=== PATIENT | female | born 1985 | race African-American/Black ===

== ENCOUNTER 2022-01-28 17:30 | Emergency (ER) | payer OTHER ==
--- OUTSIDE RECORDS SUMMARY | 2022-01-28 17:32 | XMS REPORT | Continuity of Care Document ---
:1985 Author Organization [facility] Address [address] [place] [address] Dr. Cortes [address] [place] [id number] Care Team Providers Name Role Phone NENA Attending Clinician Unavailable Tiburcio Gallardo Attending Clinician [phone] NENA Admitting Clinician Unavailable Payers Payer Name Policy Type Policy Number Effective Date Expiration Date S anshu [facility] [id number] 2021 [facility] - 00:00:00 [place] (MEDICAID H[place] [id number] [facility] (MEDICAID) Problems This patient has no known problems. Allergies, Adverse Reactions, Alerts This patient has no known allergies or adverse reactions. Medications This patient has no known medications. Procedures This patient has no known procedures. Encounters Start End Encounter Admission Attending Care Care Encounter Source Date/Time Date/Time Type Type Clinicians Facility Department ID 2021-12-22 2021-12-22 Outpatient EREDMUNDO_R [facility] [address] [place] 05:19:00 05:19:00 0719 [facility] 2021-12-22 2021-12-22 Outpatient Yosi [facility] [id number] 00:00:00 00:00:00 Tiburcio [id number] [place] [id number] 2021-02-02 2021-02-02 Outpatient ERKELSI [facility] [address] [place] 12:15:00 12:15:00 0830 [facility] 2021-02-02 2021-02-02 Outpatient ERKELSI [facility] [address] [place] 12:15:00 12:15:00 0714 [facility] 2021-02-02 2021-02-02 Outpatient Yosi [facility] [id number] 00:00:00 00:00:00 Tiburcio [id number] [place] [id number] 2020-12-22 2020-12-22 Outpatient YOSI_Pro [facility] [address] [place] 04:26:00 04:26:00 0719 [facility] 2020-12-22 2020-12-22 Outpatient Gallardo, [facility] [id number] 00:00:00 00:00:00 Tiburcio [id number] Harrison [id number] 2020-12-16 Outpatient NENA [facility] [address] [place] 01:11:00 01:11:00 0713 [facility] Results This patient has no known results.
[2022-01-28] MEDS ORDERED: LIDOCAINE 1% MPF 30 ML VIAL ONE ×2 (17:59→18:01)
--- NOTE | 2022-01-28 18:09 | EDPHYS ---
Physician Documentation [facility] Name: Guero Brantley Age: 36 yrs Sex: Female : 1985 Arrival Date: 01/28/2022 Time: 17:32 Bed 19 Private MD: ED Physician Bryce Vences HPI: 01/28 18:37 This 36 yrs old Black Female presents to ER via Unassigned with complaints of Finger ms3 Injury. 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 The rash is located on the dorsal aspect of distal phalanx of right index finger. The rash can be described as abscess. Onset: The symptoms/episode began/occurred 1 week(s) ago. Associated signs and symptoms: Pertinent positives: Pain. Severity of symptoms: At their worst the symptoms were moderate in the emergency department the symptoms are unchanged. Treatment given at home: NSAIDS. 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 - Social history:: Smoking status: Patient denies any tobacco usage or history of. ROS: 18:37 Constitutional: Negative for fever, and chills. Neck: Negative for injury, pain, and ms3 swelling, Cardiovascular: Negative for chest pain, and palpitations. Respiratory: Negative for shortness of breath, cough, wheezing, and pleuritic chest pain, Abdomen/GI: Negative for abdominal pain, nausea, vomiting, diarrhea, and constipation, MS/Extremity: Negative for injury and deformity. 18:37 Skin: Positive for rash. 18:37 All other systems are negative. Exam: 18:37 Constitutional: This is a well developed, well nourished patient who is awake, alert, ms3 and in no acute distress. Head/Face: Normocephalic, atraumatic. Neck: Trachea midline, no cervical lymphadenopathy. Supple, full range of motion without nuchal rigidity, or vertebral point tenderness. No Meningismus. Chest/axilla: Normal chest wall appearance and motion. Nontender with no deformity. Cardiovascular: Regular rate and rhythm with a normal S1 and S2. No gallops, murmurs, or rubs. Normal PMI, no JVD. No pulse deficits. Respiratory: Lungs have equal breath sounds bilaterally, clear to auscultation and percussion. No rales, rhonchi or wheezes noted. No increased work of breathing, no retractions or nasal flaring. Abdomen/GI: Soft, non-tender, with normal bowel sounds. No distension or tympany. No guarding or rebound. No evidence of tenderness throughout. Psych: Awake, alert, with orientation to person, place and time. Behavior, mood, and affect are within normal limits. 18:37 Skin: Appearance: abscess, that is moderate sized, of the dorsal aspect of distal phalanx of right index finger, with fluctuance. Vital Signs: 17:30 BP 128 / 78; Pulse 82; Resp 16; Temp 98; Pulse Ox 100% ; Weight 68.04 kg; Height 5 ft. kb3 6 in. (167.64 cm); Pain 7/10; 17:30 Body Mass Index 24.21 (68.04 kg, 167.64 cm) kb3 Procedures: 18:33 I \T\ D: Incision and drainage was performed for an abscess of the right Index finger ms3 Prepped with alcohol, Anesthetized with 5 ml's 1% Lidocaine. Digital block. Incised with #11 blade. Drained moderate amount purulent fluid. Dressing: sterile 4x4 gauze, petroleum dressing, the patient tolerated the procedure poorly, Paronychia not packed as patient stated she would like the procedure stopped. Explained risks of not packing the paronychia with patient. She accepts risks of recollection of abscess.. MDM: 17:47 Patient medically screened. ms3 18:37 Data reviewed: vital signs, nurses notes, and as a result, I will discharge patient. ms3 Counseling: I had a detailed discussion with the patient and/or guardian regarding: the historical points, exam findings, and any diagnostic results supporting the discharge/admit diagnosis, the need for outpatient follow up, to return to the emergency department if symptoms worsen or persist or if there are any questions or concerns that arise at home. Special discussion: I discussed with the patient/guardian in detail that at this point there is no indication for admission to the hospital. It is understood, however, that if the symptoms persist or worsen the patient needs to return immediately for re-evaluation. Administered Medications: 18:17 Drug: Lidocaine (1 %) 10 ml {Note: At bedside for MD use.} Volume: 20 ml; Route: kb3 Infiltration; 18:18 Follow up: Response: No adverse reaction kb3 18:28 Drug: ADAcel 0.5 ml {Patient Registration Supervisor: [employer] Exp: 03/13/2022. Lot #: [id number]. } Route: IM; Site: left deltoid; 18:31 Follow up: Response: No adverse reaction kb3 Disposition Summary: 01/28/22 18:08 Discharge Ordered Location: Home ms3 Condition: Stable ms3 Diagnosis - Paronychia ms3 Followup: ms3 - With: Andres Vaughn MD - When: 2 - 3 days - Reason: Recheck today's complaints Discharge Instructions: - Discharge Summary Sheet ms3 - Paronychia, [id number] ms3 Forms: - Medication Reconciliation Form ms3 - Thank You Letter ms3 - Antibiotic Education ms3 - Prescription Opioid Use ms3 Prescriptions: - Doxycycline Hyclate 100 mg Oral Tablet - take 1 tablet by ORAL route every 12 hours; 20 tablet; Refills: 0, Product ms3 Selection Permitted - Ibuprofen 600 mg Oral Tablet - take 1 tablet by ORAL route every 6 hours As needed take with food; 30 tablet; ms3 Refills: 0, Product Selection Permitted Signatures: Bryce Vences DO DO ms3 Susannah Earl, RN RN kb3
[2022-01-28] MEDS ORDERED: TETANUS & DIPHTHERIA TOX,ADULT 0.5 ML VIAL ONE (18:29)
[2022-01-28] MEDS ORDERED: TDAP (DIPHTH,PERTUSS(ACELL),TET VAC) 0.5 ML VIAL IMVAC ONE ×2 (18:30→18:39)
--- NOTE | 2022-01-28 18:46 | ER ---
Nurse's Notes [facility] Name: Guero Brantley Age: 36 yrs Sex: Female : 1985 Arrival Date: 01/28/2022 Time: 17:32 Bed 19 Private MD: Diagnosis: Paronychia Presentation: 01/28 17:30 Chief complaint: Patient states: Pt report infection to right index finger at base of kb3 nailbed x2 weeks. 17:30 Coronavirus screen: Vaccine status: Patient reports receiving the 2nd dose of the covid kb3 vaccine. Client denies travel out of the [place] in the last 14 days. At this time, the client does not indicate any symptoms associated with coronavirus-19. Ebola Screen: Patient negative for fever greater than or equal to 101.5 degrees Fahrenheit, and additional compatible Ebola Virus Disease symptoms Patient denies exposure to infectious person. Patient denies travel to an Ebola-affected area in the 21 days before illness onset. No symptoms or risks identified at this time. Initial Sepsis Screen: Does the patient meet any 2 criteria? No. Patient's initial sepsis screen is negative. Does the patient have a suspected source of infection? Yes: Skin breakdown/wound. Risk Assessment: Do you want to hurt yourself or someone else? Patient reports no desire to harm self or others. Onset of symptoms was January 14, 2022. 17:30 Method Of Arrival: Ambulatory kb3 17:30 Acuity: TAMMI 4 kb3 Triage Assessment: 17:30 General: Appears in no apparent distress. Behavior is calm, cooperative. kb3 17:30 Pain: Complains of pain in dorsal aspect of distal phalanx of right index finger Pain kb3 does not radiate. Pain currently is 7 out of 10 on a pain scale. Quality of pain is described as burning, pressure. Injury Description: Paronychia at the base of the nailbed on the right index finger. 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 - Social history:: Smoking status: Patient denies any tobacco usage or history of. Screenin:30 Abuse screen: Denies threats or abuse. Denies injuries from another. Nutritional kb3 screening: No deficits noted. Tuberculosis screening: No symptoms or risk factors identified. Fall Risk None identified. Assessment: 17:30 General: See triage note. kb3 17:30 Pain: Complains of pain in dorsal aspect of distal phalanx of right index finger. kb3 Musculoskeletal: Reports pain in dorsal aspect of distal phalanx of right index finger. Vital Signs: 17:30 BP 128 / 78; Pulse 82; Resp 16; Temp 98; Pulse Ox 100% ; Weight 68.04 kg; Height 5 ft. kb3 6 in. (167.64 cm); Pain 7/10; 17:30 Body Mass Index 24.21 (68.04 kg, 167.64 cm) kb3 ED Course: 17:30 Arm band placed on Patient placed in an exam room. kb3 17:30 Patient has correct armband on for positive identification. kb3 17:30 Assist provider with I \T\ D: Set up I\T\D tray. Performed by Bryce Vences DO. Patient did kb 3 not have IV access during this emergency room visit. 17:32 Patient arrived in ED. as 17:34 Bryce Vences DO is Attending Physician. ms3 17:47 Susannah Earl, FRANK is Primary Nurse. kb3 18:08 Andres Vaughn MD is Referral Physician. ms3 18:41 Triage completed. kb3 Administered Medications: 18:17 Drug: Lidocaine (1 %) 10 ml {Note: At bedside for MD use.} Volume: 20 ml; Route: kb3 Infiltration; 18:18 Follow up: Response: No adverse reaction kb3 18:28 Drug: ADAcel 0.5 ml {[employer] Products Sales Representative: [employer] Exp: 03/13/2022. Lot #: [id number]. } Route: IM; Site: left deltoid; 18:31 Follow up: Response: No adverse reaction kb3 Medication: 17:30 VIS not applicable for this client. kb3 Outcome: 18:08 Discharge ordered by MD. ms3 18:45 Discharged to home ambulatory. kb3 18:45 Condition: stable 18:45 Discharge instructions given to patient, Instructed on discharge instructions, follow up and referral plans. medication usage, Demonstrated understanding of instructions, follow-up care, medications, Prescriptions given X 2. 18:45 Patient left the ED. kb3 Signatures: Patria Jacobo Marcus, DO DO ms3 Susannah Earl, RN RN kb3
[2022-01-28 20:29] VITALS: BP 128/78; TEMP 98; O2SAT 100
== END 2022-01-28 18:45 | disposition home or self-care (01) ==
LOC: ER 17:30
PROC: 0H9FXZZ Drainage of Right Hand Skin, External Approach (ICD-10-PCS; principal; 2022-01-28)
DX: L03.011 Cellulitis of right finger (principal)
CPT/HCPCS: 90471; 90714; 99283